=== PATIENT | male | born 1990 | race Two or more races ===

== ENCOUNTER 2023-11-06 16:11 | Emergency (ER) | payer BC, OTHER ==
[~2023-11-06] VITALS: Ht 177.8 cm; Wt 149.3 kg
[2023-11-06 16:20] VITALS: BP 160/88; PULSE 103; RESP 16; O2SAT 97
[2023-11-06] MEDS ORDERED: CLOTCRE3 EX (20:31)
[2023-11-06] MEDS ORDERED: DOXY100C4 PO (20:31)
== END 2023-11-06 21:06 | disposition home or self-care (01) ==
LOC: ER 16:11
DX: S31.21XA Laceration without foreign body of penis, initial encounter (principal); N47.5 Adhesions of prepuce and glans penis; N45.4 Abscess of epididymis or testis; Z79.899 Other long term (current) drug therapy; X58.XXXA Exposure to other specified factors, initial encounter; Y93.89 Activity, other specified; Y92.89 Other specified places as the place of occurrence of the external cause; Y99.8 Other external cause status